=== PATIENT | female | born 1980 | race Caucasian/White ===

== ENCOUNTER → 2018-09-20 | Outpatient (CLI) | payer OTHER ==
[~2018-09-20] MED LIST: ANUS2.5C2 TOP; DOCU5LIQ PO; IBUP600T26 PO; LANOOIN21 TOP; MAPA500T17 PO; MOM30SS PO; PRENTAB74 PO
[2018-09-20 18:43] LABS: THYROID STIMULATING HORMONE 1.42 uIU/ML (0.358-3.740); THYROXINE (T4) 7.2 UG/DL (4.5-12.0)
[2018-09-20 19:07] LABS: TOTAL T3 102.6 NG/DL (60.0-181.0)
== END ==
LOC: M SMT 14:31
PROVIDERS: ATTEND Advanced Practice Midwife
DX: D64.9 Anemia, unspecified (principal)